=== PATIENT | female | born 1995 | race Caucasian/White ===

== ENCOUNTER 2016-08-28 14:15 | Emergency (ER) | payer OTHER ==
[~2016-08-28] VITALS: Ht 162.6 cm; Wt 59.5 kg
[2016-08-28 14:18] VITALS: Ht 162.6 cm; Wt 59.5 kg
[2016-08-28] MEDS ORDERED: ACETAMINOPHEN 325 MG TAB PO ONE (16:00)
--- NOTE | 2016-08-28 16:37 | RADRPT ---
PROCEDURE: XR Chest. CLINICAL INDICATION: Cough. TECHNIQUE: Single frontal view of the chest was obtained. COMPARISON: No. FINDINGS: The heart is normal in size. The left-sided aorta is normal. The trachea and hilar structures are normal. The lungs are clear. The diaphragms are flattened. No pleural effusion is noted. The bon y elements are normal. IMPRESSION: 1. Pulmonary hyperinflation with no evidence of an acute infiltrate. RPTAT:AAJJ Physician Uma Date Time Electronically viewed and signed by Gibson Cox Physician on 08/28/2016 16:36 [email or web address]/
[2016-08-28] MEDS ORDERED: ACET325T33 PO (16:52)
--- NOTE | 2016-08-28 16:54 | ERD ---
ER Documentation Chief Complaint Date/Time DATE: 08/28/16 TIME: 16:54 Chief Complaint upper left side of chest wall pain that radiates down left arm, calm no anx HPI Patient is a 21-year-old female with no medical problems who presents with chest pain. The patient left-sided chest pain which started this morning. The pain comes and goes. Symptoms lasted 2 hours when they come. The patient has had no treatment as of yet. She does have a cough. She does not currently have a primary doctor. Upon review of old medical records this is the patient' s first visit to the emergency department. ROS All systems reviewed and are negative except as per history of present illness. Medications Home Meds Active Scripts Acetaminophen* (Tylenol*) 325 Mg Tablet, 2 TAB PO Q8 Y for PAIN AND OR ELEVATED TEMP, #20 TAB Prov:ARIEL HURT MD 08/28/16 Allergies Allergies: Coded Allergies: No Known Allergy (Unverified , 08/28/16) PMhx/Soc Medical and Surgical Hx: pt denies Medical Hx, pt denies Surgical Hx History of Surgery: No Anesthesia Reaction: No Hx Neurological Disorder: No Hx Respiratory Disorders: No Hx Cardiac Disorders: No Hx Psychiatric Problems: No Hx Miscellaneous Medical Probl: No Hx Alcohol Use: Yes (occassional) Hx Substance Use: No Hx Tobacco Use: No Smoking Status: Never smoker FmHx Family History: diabetes Physical Exam Vitals Vital Signs Date Time Temp Pulse Resp B/P Pulse Ox O2 Delivery O2 Flow Rate FiO2 08/28/16 14:18 98.6 81 18 110/60 99 Physical Exam Const: No acute distress Head: Atraumatic Eyes: Normal Conjunctiva ENT: Normal External Ears, Nose and Mouth. Neck: Full range of motion..~ No meningismus. Resp: Clear to auscultation bilaterally Cardio: Regular rate and rhythm, no murmurs Abd: Soft, non tender, non distended. Normal bowel sounds Skin: No petechiae or rashes Back: No midline or flank tenderness Ext: No cyanosis, or edema Neur: Awake and alert Psych: Normal Mood and Affect Results 24 hrs Current Medications Medications (Trade) Dose Ordered Sig/Kary Route PRN Reason Start Time Stop Time Status Last Admin Dose Admin Acetaminophen (Tylenol Tab) 650 mg ONCE ONCE PO 08/28/16 16:00 5/31/17 16:01 DC 08/28/16 16:19 Procedures/MDM EKG read by me: Rate/Rhythm: First-degree AV block at a rate of 78 Intervals: Prolonged [place] interval Impression: First-degree AV block without ischemia Chest x-ray shows no pneumonia or pneumothorax per radiology. Patient is a 21-year-old female with no medical problems who presents with chest pain. Her EKG and chest x-ray did not show any signs of ischemia. She does have a first-degree AV block. I doubt acute coronary syndrome, pneumonia, pneumothorax, pulmonary embolism, or aortic dissection. Urine test was negative. The patient will be discharged home and can use Tylenol or Motrin for pain. She can return for any worsening symptoms. She should follow- up with the local clinics within 24-48 hours as she does not currently have a primary doctor. Departure Diagnosis: Primary Impression: Chest pain Chest pain type: unspecified Qualified Code: R07.9 - Chest pain, unspecified type Condition: Fair Patient Instructions: Chest Pain, Uncertain Cause Additional Instructions: Call your primary care doctor TOMORROW for an appointment during the next 1-2 days.See the doctor sooner or return here if your condition worsens before your appointment time. ARIEL HURT MD August 28, 2016 16:54
== END 2016-08-28 17:15 | disposition home or self-care (01) ==
LOC: FTE 14:15
DX: R07.89 Other chest pain (principal)
CPT/HCPCS: 71010; 93005; Z7502; Z7610

== ENCOUNTER 2018-01-04 14:11 | Emergency (ER) | END 2018-01-04 14:50 | disposition home or self-care (01) ==